=== PATIENT | female | born 1990 | race African-American/Black ===

== ENCOUNTER 2018-06-17 08:57 | Emergency (ER) | payer MEDICAID ==
[~2018-06-17] VITALS: Ht 167.6 cm; Wt 71.0 kg
[2018-06-17] MEDS ORDERED: SODIUM CHLORIDE 0.9% 1,000 ML IV ONE (09:23)
[2018-06-17] MEDS ORDERED: FAMOTIDINE 20MG/2ML VIAL IV ONE (09:30)
[2018-06-17] MEDS ORDERED: ACETAMINOPHEN 325MG TABLET PO ONE (09:30)
[2018-06-17 10:00] LABS: BASOPHILS % 0.2 % (0.0-2.0); EOSINOPHILS % 0.4 % (0.0-5.0); HEMATOCRIT. 35.8 % (36.0-48.0); HEMOGLOBIN. 12.3 g/dL (12.0-16.0); LYMPHOCYTES % 10.7 % (20.0-50.0); MEAN CORPUSCULAR HEMOGLOBIN 29.8 pg (28.0-32.0); MEAN CORPUSCULAR VOLUME 86.9 fL (81.0-99.0); MEAN PLATELET VOLUME 7.2 fl (7.4-10.4); MONOCYTES % 4.5 % (2.0-8.0); NEUTROPHILS % 84.2 % (40.0-76.0); PLATELET 394 x1000/uL (130-400); RED BLOOD CELL COUNT 4.13 mill/uL (4.2-5.4); RED CELL DISTRIBUTION WIDTH 13.7 % (11.6-14.6)
[2018-06-17 10:03] LABS: CHLORIDE 104 mEq/L (98-107)
[2018-06-17 10:27] LABS: B-HCG QUANTITATIVE 107668 mIU/mL (<3)
[2018-06-17] MEDS ORDERED: ONDANSETRON HCL 4MG/2ML INJ IV ONE (11:00)
[2018-06-17 12:20] LABS: CLARITY URINE TURBID (CLEAR); COLOR URINE YELLOW (YELLOW); KETONES URINE 4+ (NEGATIVE); LEUKOCYTE ESTERASE URINE NEGATIVE (NEGATIVE); NITRITE URINE NEGATIVE (NEGATIVE); OCCULT BLOOD URINE NEGATIVE (NEGATIVE); PH URINE 8.5 (4.5-8.0); PROTEIN URINE NEGATIVE (NEGATIVE); SPECIFIC GRAVITY URINE 1.013 (1.005-1.030)
[2018-06-17 13:11] VITALS: BP 108/61
== END 2018-06-17 13:31 | disposition home or self-care (01) ==
LOC: ER 08:57
DX: O26.891 Other specified pregnancy related conditions, first trimester (principal); R10.84 Generalized abdominal pain; O21.9 Vomiting of pregnancy, unspecified; O99.321 Drug use complicating pregnancy, first trimester; F12.90 Cannabis use, unspecified, uncomplicated; Z3A.08 8 weeks gestation of pregnancy
CPT/HCPCS: 36415; 76801; 76817; 80053; 81003; 83690; 84702; 85025; 96361; 96374; 96375; 99285; J2405; J3490; J7030; Z7610

== ENCOUNTER 2018-07-05 05:18 | Emergency (ER) | payer MEDICAID, OTHER ==
[~2018-07-05] VITALS: Ht 172.7 cm; Wt 72.7 kg
[2018-07-05] MEDS ORDERED: SODIUM CHLORIDE 0.9% 1,000 ML IV ONE (06:13)
[2018-07-05] MEDS ORDERED: ACETAMINOPHEN 325MG TABLET PO PRN (06:15)
[2018-07-05] MEDS ORDERED: POLYETHYLENE GLYCOL 3350 (17GM) 1 DOSE PACK PO ONE ×2 (06:15→09:00)
[2018-07-05 06:36] LABS: HEMATOCRIT. 31.1 % (36.0-48.0); HEMOGLOBIN. 10.7 g/dL (12.0-16.0); MEAN CORPUSCULAR HEMOGLOBIN 30.1 pg (28.0-32.0); MEAN CORPUSCULAR VOLUME 87.6 fL (81.0-99.0); PLATELET 310 x1000/uL (130-400); RED BLOOD CELL COUNT 3.55 mill/uL (4.2-5.4); RED CELL DISTRIBUTION WIDTH 13.8 % (11.6-14.6)
[2018-07-05 06:41] LABS: CHLORIDE 108 mEq/L (98-107)
[2018-07-05 07:04] LABS: B-HCG QUANTITATIVE 60455 mIU/mL (<3)
[2018-07-05 07:18] LABS: PLATELET ESTIMATE NORMAL
[2018-07-05] MEDS ORDERED: ONDANSETRON HCL 4MG/2ML INJ IV ONE (07:45)
[2018-07-05] MEDS ORDERED: ONDANSETRON HCL 4MG/2ML INJ ONE (07:48)
[2018-07-05 09:15] LABS: CLARITY URINE CLEAR (CLEAR); COLOR URINE YELLOW (YELLOW); KETONES URINE NEGATIVE (NEGATIVE); LEUKOCYTE ESTERASE URINE NEGATIVE (NEGATIVE); NITRITE URINE NEGATIVE (NEGATIVE); OCCULT BLOOD URINE NEGATIVE (NEGATIVE); PROTEIN URINE NEGATIVE (NEGATIVE); SPECIFIC GRAVITY URINE 1.005 (1.005-1.030); UROBILINOGEN URINE 0.2 E.U./dL (0.2-1.0)
[2018-07-05 11:31] VITALS: BP 118/72
== END 2018-07-05 11:34 | disposition home or self-care (01) ==
LOC: ER 05:18
DX: O26.891 Other specified pregnancy related conditions, first trimester (principal); R10.0 Acute abdomen; K59.00 Constipation, unspecified
CPT/HCPCS: 36415; 76801; 80053; 81003; 83690; 84702; 85025; 93005; 96374; 99285; J2405; J7030

== ENCOUNTER 2018-07-22 08:05 | Emergency (ER) | payer OTHER ==
[~2018-07-22] VITALS: Ht 162.6 cm; Wt 70.0 kg
[2018-07-22] MEDS ORDERED: SODIUM CHLORIDE 0.9% 1,000 ML IV ONE (10:26)
[2018-07-22] MEDS ORDERED: ONDANSETRON HCL 4MG/2ML INJ IV STA (10:26)
[2018-07-22 10:38] LABS: BASOPHILS % 0.2 % (0.0-2.0); EOSINOPHILS % 0.1 % (0.0-5.0); HEMATOCRIT. 33.2 % (36.0-48.0); HEMOGLOBIN. 11.4 g/dL (12.0-16.0); LYMPHOCYTES % 8.2 % (20.0-50.0); MEAN CORPUSCULAR VOLUME 87.4 fL (81.0-99.0); MEAN PLATELET VOLUME 7.9 fl (7.4-10.4); MONOCYTES % 5.3 % (2.0-8.0); NEUTROPHILS % 86.2 % (40.0-76.0); PLATELET 387 x1000/uL (130-400); RED CELL DISTRIBUTION WIDTH 13.9 % (11.6-14.6)
[2018-07-22 10:46] LABS: CLARITY URINE CLOUDY (CLEAR); COLOR URINE DARK YELLOW (YELLOW); KETONES URINE 4+ (NEGATIVE); LEUKOCYTE ESTERASE URINE NEGATIVE (NEGATIVE); NITRITE URINE NEGATIVE (NEGATIVE); OCCULT BLOOD URINE NEGATIVE (NEGATIVE); PH URINE 6.5 (4.5-8.0); PROTEIN URINE 1+ (NEGATIVE); SPECIFIC GRAVITY URINE 1.025 (1.005-1.030)
[2018-07-22 11:33] LABS: OPIATES URINE SCREEN NEGATIVE (NEGATIVE); PHENCYCLIDINE URINE SCREEN NEGATIVE (NEGATIVE)
[2018-07-22 11:38] LABS: *AMPHETAMINES SCREEN URINE NEGATIVE (NEGATIVE); *BARBITURATES SCREEN URINE NEGATIVE (NEGATIVE); *BENZODIAZEPINES SCREEN URINE NEGATIVE (NEGATIVE); *COCAINE SCREEN URINE NEGATIVE (NEGATIVE); METHADONE URINE SCREEN NEGATIVE (NEGATIVE)
[2018-07-22 11:40] LABS: CANNABINOID URINE SCREEN PRESUMTIVE POSITIVE (NEGATIVE)
[2018-07-22 11:49] LABS: CHLORIDE 107 mEq/L (98-107)
[2018-07-22 12:13] LABS: B-HCG QUANTITATIVE 42360 mIU/mL (<3)
[2018-07-22] MEDS ORDERED: POTASSIUM CHLORIDE 20MEQ TABLET SR PO ONE (13:00)
[2018-07-22] MEDS ORDERED: CEFAZOLIN 1000MG PREMIX 50 ML IV ONE (13:00)
[2018-07-22 15:36] VITALS: BP 112/63
== END 2018-07-22 15:38 | disposition home or self-care (01) ==
LOC: ER 08:05
DX: O23.41 Unspecified infection of urinary tract in pregnancy, first trimester (principal); O21.9 Vomiting of pregnancy, unspecified; Z3A.13 13 weeks gestation of pregnancy; F12.90 Cannabis use, unspecified, uncomplicated; R10.2 Pelvic and perineal pain
CPT/HCPCS: 36415; 76801; 80053; 80305; 81003; 81025; 83690; 84702; 85025; 86850; 86900; 86901; 96361; 96365; 96375; 99285; J0690; J2405; J7030

== ENCOUNTER 2018-08-01 17:54 | Emergency (ER) | payer OTHER ==
[~2018-08-01] VITALS: Ht 162.6 cm; Wt 60.0 kg
[2018-08-01 17:56] VITALS: BP 129/68
== END 2018-08-01 22:45 | disposition left against medical advice (07) ==
LOC: ER 17:54
DX: O26.891 Other specified pregnancy related conditions, first trimester (principal); R10.9 Unspecified abdominal pain; Z3A.13 13 weeks gestation of pregnancy; Z53.21 Procedure and treatment not carried out due to patient leaving prior to being seen by health care provider

== ENCOUNTER 2018-08-02 02:16 | Emergency (ER) | payer OTHER ==
[~2018-08-02] VITALS: Ht 162.6 cm; Wt 64.2 kg
[2018-08-02] MEDS ORDERED: SODIUM CHLORIDE 0.9% 1,000 ML IV ONE (03:38)
[2018-08-02] MEDS ORDERED: ONDANSETRON HCL 4MG/2ML INJ IV STA (03:38)
[2018-08-02 03:58] LABS: HEMATOCRIT. 33.5 % (36.0-48.0); HEMOGLOBIN. 11.6 g/dL (12.0-16.0); MEAN CORPUSCULAR VOLUME 86.8 fL (81.0-99.0); PLATELET 389 x1000/uL (130-400); RED BLOOD CELL COUNT 3.86 mill/uL (4.2-5.4); RED CELL DISTRIBUTION WIDTH 14.4 % (11.6-14.6)
[2018-08-02 04:06] LABS: PROTHROMBIN TIME 10.3 sec (9.1-11.1)
[2018-08-02 04:10] LABS: CHLORIDE 105 mEq/L (98-107)
[2018-08-02 05:11] LABS: CLARITY URINE CLOUDY (CLEAR); COLOR URINE DARK YELLOW (YELLOW); KETONES URINE 4+ (NEGATIVE); LEUKOCYTE ESTERASE URINE TRACE (NEGATIVE); NITRITE URINE NEGATIVE (NEGATIVE); OCCULT BLOOD URINE NEGATIVE (NEGATIVE); PROTEIN URINE 2+ (NEGATIVE); SPECIFIC GRAVITY URINE 1.028 (1.005-1.030)
[2018-08-02 05:47] VITALS: BP 115/64
[2018-08-02 06:35] LABS: ATYPICAL LYMPHOCYTES 1; PLATELET ESTIMATE NORMAL
== END 2018-08-02 05:46 | disposition home or self-care (01) ==
LOC: ER 02:16
DX: O23.42 Unspecified infection of urinary tract in pregnancy, second trimester (principal); O21.0 Mild hyperemesis gravidarum; Z3A.16 16 weeks gestation of pregnancy; O26.892 Other specified pregnancy related conditions, second trimester; R03.0 Elevated blood-pressure reading, without diagnosis of hypertension
CPT/HCPCS: 36415; 80053; 81003; 81025; 85025; 85610; 96361; 96374; 99285; J2405; J7030

== ENCOUNTER 2019-01-25 02:27 | Inpatient (IN) | payer OTHER ==
[~2019-01-25] VITALS: Ht 162.6 cm; Wt 74.8 kg
[2019-01-25] MEDS ORDERED: LACTATED RINGERS 500 ML IV SCH (02:43)
[2019-01-25] MEDS ORDERED: DEXT 5%/LR + PITOCIN 20UNITS/L 1,000 ML IV SCH ×2 (02:43→03:34)
[2019-01-25] MEDS ORDERED: CARBOPROST TROMETHAMINE 250 MCG/ML AMPUL IM PRN (02:45)
[2019-01-25] MEDS ORDERED: NALOXONE HCL 0.4 MG/ML 1ML VIAL IM PRN (02:45)
[2019-01-25] MEDS ORDERED: BUTORPHANOL TARTRATE 2 MG/ML VIAL IV PRN (02:45)
[2019-01-25] MEDS ORDERED: MISOPROSTOL 100MCG TABLET VG SCH (02:45)
[2019-01-25] MEDS ORDERED: LIDOCAINE HCL 1% 20ML VIAL (Pyxis) INJ INFIL SCH (02:45)
[2019-01-25] MEDS ORDERED: METHYLERGONOVINE MALEATE 0.2 MG/ML IM PRN ×2 (02:45→03:45)
[2019-01-25] MEDS ORDERED: RHO(D) IMMUNE GLOBULIN 300 MCG/SYR IM PRN (03:45)
[2019-01-25] MEDS ORDERED: LANOLIN OINT 0.25 GM TUBE TOP PRN (03:45)
[2019-01-25] MEDS ORDERED: IBUPROFEN 400MG TABLET PO PRN (03:45)
[2019-01-25 04:45] VITALS: BP 114/78
[2019-01-25 05:15] VITALS: BP 119/73
[2019-01-25 05:47] LABS: BASOPHILS % 0.3 % (0.0-2.0); EOSINOPHILS % 0.7 % (0.0-5.0); HEMATOCRIT. 28.8 % (36.0-48.0); HEMOGLOBIN. 9.6 g/dL (12.0-16.0); LYMPHOCYTES % 18.1 % (20.0-50.0); MEAN CORPUSCULAR HEMOGLOBIN 28.3 pg (28.0-32.0); MEAN PLATELET VOLUME 7.6 fl (7.4-10.4); MONOCYTES % 6.6 % (2.0-8.0); NEUTROPHILS % 74.3 % (40.0-76.0); PLATELET 373 x1000/uL (130-400); RED BLOOD CELL COUNT 3.38 mill/uL (4.2-5.4); RED CELL DISTRIBUTION WIDTH 13.9 % (11.6-14.6)
[2019-01-25 05:56] LABS: CLARITY URINE CLEAR (CLEAR); COLOR URINE RED (YELLOW); KETONES URINE TRACE (NEGATIVE); LEUKOCYTE ESTERASE URINE TRACE (NEGATIVE); NITRITE URINE NEGATIVE (NEGATIVE); OCCULT BLOOD URINE 3+ (NEGATIVE); PROTEIN URINE 1+ (NEGATIVE)
[2019-01-25 06:04] LABS: INR 0.9; PARTIAL THROMBOPLASTIN TIME 28.4 sec (23.4-31.0); PROTHROMBIN TIME 9.4 sec (9.6-11.0)
[2019-01-25] MEDS: IBUPROFEN 800MG TABLET PO PRN (06:25)
[2019-01-25 06:49] LABS: HEPATITIS B SURFACE ANTIGEN NEGATIVE
[2019-01-25 07:35] LABS: *BENZODIAZEPINES SCREEN URINE NEGATIVE (NEGATIVE); *COCAINE SCREEN URINE NEGATIVE (NEGATIVE); METHADONE URINE SCREEN NEGATIVE (NEGATIVE)
[2019-01-25 07:36] LABS: *AMPHETAMINES SCREEN URINE NEGATIVE (NEGATIVE); *BARBITURATES SCREEN URINE NEGATIVE (NEGATIVE); CANNABINOID URINE SCREEN NEGATIVE (NEGATIVE); OPIATES URINE SCREEN NEGATIVE (NEGATIVE); PHENCYCLIDINE URINE SCREEN NEGATIVE (NEGATIVE)
[2019-01-25 08:20] VITALS: BP 118/71
[2019-01-25] MEDS: PRENATAL VIT/FE FUMARATE/FA TABLET PO SCH (10:01)
[2019-01-25 16:00] VITALS: BP 102/58
[2019-01-25 19:40] VITALS: BP 115/59
[2019-01-26 04:05] VITALS: BP 105/70
[2019-01-26 07:08] LABS: BASOPHILS % 0.4 % (0.0-2.0); HEMATOCRIT. 28.5 % (36.0-48.0); HEMOGLOBIN. 9.4 g/dL (12.0-16.0); LYMPHOCYTES % 16.1 % (20.0-50.0); MEAN CORPUSCULAR HEMOGLOBIN 27.8 pg (28.0-32.0); MEAN CORPUSCULAR VOLUME 83.9 fL (81.0-99.0); MEAN PLATELET VOLUME 7.3 fl (7.4-10.4); MONOCYTES % 7.2 % (2.0-8.0); NEUTROPHILS % 75.3 % (40.0-76.0); PLATELET 325 x1000/uL (130-400); RED CELL DISTRIBUTION WIDTH 14.1 % (11.6-14.6)
[2019-01-26 08:00] VITALS: BP 115/70
[2019-01-26] MEDS: IBUPROFEN 800MG TABLET PO PRN ×2 (08:35→15:39)
[2019-01-26] MEDS: PRENATAL VIT/FE FUMARATE/FA TABLET PO SCH (08:35)
[2019-01-26 14:53] VITALS: BP 109/67
[2019-01-26 19:20] VITALS: BP 106/67
[2019-01-26 23:30] VITALS: BP 106/68
[2019-01-27 04:30] VITALS: BP 108/70
[2019-01-27] MEDS: PRENATAL VIT/FE FUMARATE/FA TABLET PO SCH (07:59)
[2019-01-27 08:16] VITALS: BP 108/70
== END 2019-01-27 12:00 | disposition home or self-care (01) | DRG 560 ==
LOC: 8 EST LDRP 02:27 → OBSVTOIN 02:27 → 8EST 06:19
PROVIDERS: ADMIT Specialist; ATTEND Specialist
PROC: 10D07Z6 Extraction of Products of Conception, Vacuum, Via Natural or Artificial Opening (ICD-10-PCS; principal; 2019-01-25)
DX: O48.0 Post-term pregnancy (principal); D62 Acute posthemorrhagic anemia; O69.81X0 Labor and delivery complicated by cord around neck, without compression, not applicable or unspecified; O99.02 Anemia complicating childbirth; O77.0 Labor and delivery complicated by meconium in amniotic fluid; Z3A.40 40 weeks gestation of pregnancy; Z37.0 Single live birth
CPT/HCPCS: 36415; 80305; 86592; 86703; 86762; 86850; 86900; 87340; 99281; J2590

== ENCOUNTER 2019-10-11 02:24 | Emergency (ER) | payer OTHER ==
[~2019-10-11] VITALS: Ht 162.6 cm; Wt 68.0 kg
[2019-10-11] MEDS ORDERED: SODIUM CHLORIDE 0.9% 1,000 ML IV ONE (02:55)
[2019-10-11] MEDS ORDERED: FAMOTIDINE 20MG/2ML VIAL IV STA (02:55)
[2019-10-11] MEDS ORDERED: ONDANSETRON HCL 4MG/2ML INJ IV STA (02:55)
[2019-10-11 03:13] LABS: BASOPHILS % 0.7 % (0.0-2.0); EOSINOPHILS % 1.1 % (0.0-5.0); HEMATOCRIT. 30.5 % (36.0-48.0); HEMOGLOBIN. 10.5 g/dL (12.0-16.0); LYMPHOCYTES % 22.4 % (20.0-50.0); MEAN CORPUSCULAR HEMOGLOBIN 29.6 pg (28.0-32.0); MEAN PLATELET VOLUME 6.6 fl (7.4-10.4); MONOCYTES % 7.3 % (2.0-8.0); NEUTROPHILS % 68.5 % (40.0-76.0); PLATELET 644 x1000/uL (130-400); RED BLOOD CELL COUNT 3.54 mill/uL (4.2-5.4); RED CELL DISTRIBUTION WIDTH 14.2 % (11.6-14.6)
[2019-10-11 03:21] LABS: CHLORIDE 108 mEq/L (98-107)
[2019-10-11 03:24] LABS: ETHANOL BLOOD < 10 mg/dL
[2019-10-11 03:41] LABS: CLARITY URINE TURBID (CLEAR); COLOR URINE YELLOW (YELLOW); KETONES URINE NEGATIVE (NEGATIVE); LEUKOCYTE ESTERASE URINE NEGATIVE (NEGATIVE); NITRITE URINE NEGATIVE (NEGATIVE); OCCULT BLOOD URINE NEGATIVE (NEGATIVE); PROTEIN URINE NEGATIVE (NEGATIVE); SPECIFIC GRAVITY URINE 1.012 (1.005-1.030)
[2019-10-11 03:52] LABS: *BENZODIAZEPINES SCREEN URINE NEGATIVE (NEGATIVE); *COCAINE SCREEN URINE NEGATIVE (NEGATIVE); METHADONE URINE SCREEN NEGATIVE (NEGATIVE); OPIATES URINE SCREEN NEGATIVE (NEGATIVE); PHENCYCLIDINE URINE SCREEN NEGATIVE (NEGATIVE)
[2019-10-11 03:53] LABS: *AMPHETAMINES SCREEN URINE NEGATIVE (NEGATIVE); *BARBITURATES SCREEN URINE NEGATIVE (NEGATIVE)
[2019-10-11 03:54] LABS: CANNABINOID URINE SCREEN PRESUMTIVE POSITIVE (NEGATIVE)
[2019-10-11 04:49] VITALS: BP 135/75
== END 2019-10-11 04:50 | disposition home or self-care (01) ==
LOC: ER 02:24
DX: K29.70 Gastritis, unspecified, without bleeding (principal); F12.10 Cannabis abuse, uncomplicated; J45.909 Unspecified asthma, uncomplicated
CPT/HCPCS: 36415; 80053; 80305; 80320; 81003; 81025; 83690; 84702; 85025; 85610; 96361; 96374; 96375; 99283; J2405; J3490; J7030; G0480

== ENCOUNTER 2025-08-06 08:31 | Emergency (ER) | payer MEDICAID, OTHER ==
[~2025-08-06] VITALS: Ht 162.6 cm; Wt 9168.0 kg
[2025-08-06 08:46] VITALS: O2SAT 100
[2025-08-06] MEDS ORDERED: DEXAMETHASONE 1 MG/ML ORAL SYR PO ONE (11:00)
[2025-08-06] MEDS: DEXAMETHASONE 4MG TABLET PO SCH (11:11)
[2025-08-06] MEDS: DIPHENHYDRAMINE 25MG CAPSULE PO ONE (11:11)
[2025-08-06] MEDS ORDERED: DIPH25TA24 MT (11:27)
[2025-08-06] MEDS ORDERED: FLUT30CR TP (11:27)
[2025-08-06 11:57] VITALS: BP 128/86; PULSE 82; RESP 18; TEMP 36.7; O2SAT 100
== END 2025-08-06 11:58 | disposition home or self-care (01) ==
LOC: ER 08:31
DX: R60.0 Localized edema (principal); T50.905A Adverse effect of unspecified drugs, medicaments and biological substances, initial encounter; F12.90 Cannabis use, unspecified, uncomplicated; J45.909 Unspecified asthma, uncomplicated; Y92.89 Other specified places as the place of occurrence of the external cause
CPT/HCPCS: 99283; 81025; J8540; Q0163